=== PATIENT | male | born 1950 | race Caucasian/White ===

== ENCOUNTER 2023-06-28 14:44 | Emergency (ER) | payer MEDICARE, BC ==
[2023-06-28 16:27] LABS: HEMATOCRIT 38.1 % (38.4-49.7); HEMOGLOBIN 12.7 g/dL (12.9-16.9); MEAN CORPUSCULAR HEMOGLOBIN 29.8 pg (31.6-35.5); MEAN CORPUSCULAR HGB CONC 33.3 g/dL (31.6-35.5); MEAN CORPUSCULAR VOLUME 89.4 fL (81.4-99.0); PLATELET COUNT,PLT 123 K/uL (130-375); RED BLOOD CELL COUNT 4.26 M/uL (4.14-5.76); WHITE BLOOD CELL COUNT,WBC 2.7 K/uL (3.2-11.0)
[2023-06-28 16:52] LABS: BAND ABSOLUTE MAN 0.08 K/uL; BAND PERCENT MAN 3 % (5-11); EOSINOPHILS ABSOLUTE MAN 0.05 K/uL (0.00-0.40); EOSINOPHILS PERCENT MAN 2 % (2-4); LYMPHOCYTES ABSOLUTE MAN 0.51 K/uL (0.8-3.3); LYMPHOCYTES PERCENT MAN 19 % (24-44); MONOCYTES ABSOLUTE MAN 0.24 K/uL (0.20-0.90); MONOCYTES PERCENT MAN 9 % (2-6); NEUTROPHILS ABSOLUTE MAN 1.81 K/uL (1.0-7.6); SEG NEUTROPHILS PERCENT MAN 67 % (36-66)
== END 2023-06-28 17:07 | disposition home or self-care (01) ==
LOC: JP.ED 14:44
DX: C22.9 Malignant neoplasm of liver, not specified as primary or secondary (principal); R18.0 Malignant ascites; I48.91 Unspecified atrial fibrillation; I10 Essential (primary) hypertension; E11.9 Type 2 diabetes mellitus without complications; Z79.01 Long term (current) use of anticoagulants; Z79.899 Other long term (current) drug therapy; Z91.030 Bee allergy status
CPT/HCPCS: 36415; 85025; 99283; 99284

== ENCOUNTER 2023-06-30 10:12 | Emergency (ER) | payer MEDICARE, BC ==
[2023-06-30 12:06] LABS: PROTHROMBIN TIME > 170.9 sec (9.2-10.6)
[2023-06-30] MEDS ORDERED: Phytonadione 5 MG Tab PO ONE (12:14)
== END 2023-06-30 13:00 | disposition home or self-care (01) ==
LOC: JP.ED 10:12
DX: R79.1 Abnormal coagulation profile (principal); I48.91 Unspecified atrial fibrillation; I10 Essential (primary) hypertension; E11.9 Type 2 diabetes mellitus without complications; Z91.030 Bee allergy status; Z79.899 Other long term (current) drug therapy; Z79.01 Long term (current) use of anticoagulants
CPT/HCPCS: 36415; 85610; 99283; 99284; A9270

== ENCOUNTER 2023-07-21 15:37 | Emergency (ER) | payer MEDICARE, BC ==
[2023-07-21] MEDS ORDERED: Phytonadione 5 MG Tab PO ONE (16:21)
== END 2023-07-21 17:06 | disposition home or self-care (01) ==
LOC: JP.ED 15:37
DX: R79.1 Abnormal coagulation profile (principal); E11.9 Type 2 diabetes mellitus without complications; I10 Essential (primary) hypertension; I48.91 Unspecified atrial fibrillation; Z91.030 Bee allergy status; Z79.899 Other long term (current) drug therapy
CPT/HCPCS: 99283; A9270

== ENCOUNTER 2024-12-25 10:35 | Emergency (ER) | payer MEDICARE, BC ==
[2024-12-25 11:05] LABS: BASOPHILS ABSOLUTE AUTO 0.03 K/uL (0.00-0.10); BASOPHILS PERCENT AUTO 0.2 % (0.1-1.3); EOSINOPHILS ABSOLUTE AUTO 0.03 K/uL (0.00-0.40); EOSINOPHILS PERCENT AUTO 0.2 % (0.0-5.4); HEMATOCRIT 28.9 % (38.4-49.7); HEMOGLOBIN 9.8 g/dL (12.9-16.9); IMMATURE GRAN PERCENT AUTO 1.6 % (0.0-0.7); LYMPHOCYTES ABSOLUTE AUTO 1.04 K/uL (0.8-3.3); LYMPHOCYTES PERCENT AUTO 5.5 % (11.4-47.7); MEAN CORPUSCULAR HEMOGLOBIN 32.3 pg (31.6-35.5); MEAN CORPUSCULAR HGB CONC 33.9 g/dL (31.6-35.5); MEAN CORPUSCULAR VOLUME 95.4 fL (81.4-99.0); MONOCYTES ABSOLUTE AUTO 1.02 K/uL (0.20-0.90); MONOCYTES PERCENT AUTO 5.4 % (3.3-12.6); NEUTROPHILS ABSOLUTE AUTO 16.55 K/uL (1.0-7.6); NEUTROPHILS PERCENT AUTO 87.1 % (40.0-78.1); RED BLOOD CELL COUNT 3.03 M/uL (4.14-5.76)
[2024-12-25 11:07] LABS: PLATELET COUNT,PLT 27 K/uL (130-375)
[2024-12-25] MEDS: Sodium Chloride 0.9% 1,000 ML IV ONE ×2 (11:15→12:21)
[2024-12-25 11:25] LABS: A/G RATIO 0.4 (1.2-2.2); ALANINE AMINOTRANSFERASE,ALT 36 U/L (12-78); ALBUMIN 1.7 g/dL (3.4-5.0); ALKALINE PHOSPHATASE 224 U/L (46-116); ANION GAP 12.1 mmol/L (5.0-14.0); ASPARTATE AMNIOTRANSFERASE,AST 148 U/L (15-37); BLOOD UREA NITROGEN,BUN 74 mg/dL (7-18); CALCIUM 7.5 mg/dL (8.5-10.1); CARBON DIOXIDE,CO2 25 mmol/L (21-32); CHLORIDE,CL 103 mmol/L (100-108); CREATININE 3.2 mg/dL (0.8-1.3); EST CRCL DRUG DOSING (CG) 20.92 mL/min; ESTIMATED GFR 19 mL/min (>60); GLUCOSE RANDOM 54 mg/dL (74-106); POTASSIUM,K 3.8 mmol/L (3.6-5.2); PROTEIN TOTAL,TP 6.5 g/dL (6.4-8.2); SODIUM,NA 140 mmol/L (140-148)
[2024-12-25 11:27] LABS: INR 5.9
[2024-12-25] MEDS ORDERED: Factor IX Complex Human 500 UNIT VIAL IVPUSH ONE (11:59)
[2024-12-25 12:29] LABS: APPEARANCE,URINE SLIGHTLY CLOUDY (CLEAR); BILIRUBIN,URINE SMALL (NEGATIVE); COLOR,URINE BROWN (YELLOW); GLUCOSE,URINE NEGATIVE (NEGATIVE); KETONES,URINE NEGATIVE (NEGATIVE); LEUKOCYTE ESTERASE,URINE NEGATIVE (NEGATIVE); NITRITE,URINE NEGATIVE (NEGATIVE); OCCULT BLOOD,URINE MODERATE (NEGATIVE); PH,URINE 5.5 (5.0-8.0); PROTEIN,URINE 100 mg/dL (NEGATIVE); UROBILINOGEN,URINE 0.2 EU/dL (0.2-1.0)
[2024-12-25 12:30] LABS: AMORPHOUS SEDIMENT,URINE NOT SEEN; BACTERIA,URINE NOT SEEN; EPITHELIAL CELLS,URINE NOT SEEN; MUCUS,URINE NOT SEEN; RBC,URINE 0-5 (0-5); WBC,URINE 0-5 (0-5)
[2024-12-25] MEDS: Factor IX Complex Human 500 UNIT VIAL IVPUSH ONE (13:14)
== END 2024-12-25 14:04 ==
LOC: JP.ED 10:35
DX: S06.5X0A Traumatic subdural hemorrhage without loss of consciousness, initial encounter (principal); I48.91 Unspecified atrial fibrillation; D72.828 Other elevated white blood cell count; E72.20 Disorder of urea cycle metabolism, unspecified; C22.1 Intrahepatic bile duct carcinoma; R60.0 Localized edema; R06.9 Unspecified abnormalities of breathing; I10 Essential (primary) hypertension; E11.9 Type 2 diabetes mellitus without complications; Z91.030 Bee allergy status; Z79.01 Long term (current) use of anticoagulants; Z79.899 Other long term (current) drug therapy; W19.XXXA Unspecified fall, initial encounter
CPT/HCPCS: 36415; 70450; 71045; 71250; 74176; 80053; 81001; 82140; 83605; 83735; 83880; 85025; 85610; 93005; 96361; 96374; 99285; J7030; J7168

== ENCOUNTER 2025-03-22 19:28 | Emergency (ER) | payer MEDICARE, BC ==
[2025-03-22 19:38] LABS: BASOPHILS ABSOLUTE AUTO 0.01 K/uL (0.00-0.10); BASOPHILS PERCENT AUTO 0.1 % (0.1-1.3); EOSINOPHILS ABSOLUTE AUTO 0.01 K/uL (0.00-0.40); EOSINOPHILS PERCENT AUTO 0.1 % (0.0-5.4); HEMATOCRIT 37.3 % (38.4-49.7); HEMOGLOBIN 12.5 g/dL (12.9-16.9); IMMATURE GRAN PERCENT AUTO 0.3 % (0.0-0.7); LYMPHOCYTES ABSOLUTE AUTO 1.17 K/uL (0.8-3.3); LYMPHOCYTES PERCENT AUTO 15.1 % (11.4-47.7); MEAN CORPUSCULAR HEMOGLOBIN 32.6 pg (31.6-35.5); MEAN CORPUSCULAR HGB CONC 33.5 g/dL (31.6-35.5); MEAN CORPUSCULAR VOLUME 97.4 fL (81.4-99.0); MONOCYTES ABSOLUTE AUTO 0.56 K/uL (0.20-0.90); MONOCYTES PERCENT AUTO 7.2 % (3.3-12.6); NEUTROPHILS ABSOLUTE AUTO 5.97 K/uL (1.0-7.6); NEUTROPHILS PERCENT AUTO 77.2 % (40.0-78.1); PLATELET COUNT,PLT 99 K/uL (130-375); RED BLOOD CELL COUNT 3.83 M/uL (4.14-5.76); WHITE BLOOD CELL COUNT,WBC 7.7 K/uL (3.2-11.0)
[2025-03-22 19:39] LABS: IMMATURE GRAN ABSOLUTE AUTO 0.02 K/uL (0.00-0.23)
[2025-03-22 19:53] LABS: INR 1.3; PROTHROMBIN TIME 12.9 sec (9.2-10.6)
[2025-03-22 19:57] LABS: ALANINE AMINOTRANSFERASE,ALT 38 U/L (12-78); ALBUMIN 2.2 g/dL (3.4-5.0); ALKALINE PHOSPHATASE 223 U/L (46-116); ASPARTATE AMNIOTRANSFERASE,AST 54 U/L (15-37); BILIRUBIN TOTAL 1.5 mg/dL (0.2-1.0); BLOOD UREA NITROGEN,BUN 33 mg/dL (7-18); CALCIUM 8.9 mg/dL (8.5-10.1); CARBON DIOXIDE,CO2 36 mmol/L (21-32); CHLORIDE,CL 93 mmol/L (100-108); CREATININE 1.7 mg/dL (0.8-1.3); EST CRCL DRUG DOSING (CG) 33.92 mL/min; ESTIMATED GFR 41 mL/min (>60); GLUCOSE RANDOM 186 mg/dL (74-106); POTASSIUM,K 3.3 mmol/L (3.6-5.2); PROTEIN TOTAL,TP 8.5 g/dL (6.4-8.2); SODIUM,NA 137 mmol/L (140-148)
[2025-03-22 19:59] LABS: A/G RATIO 0.4 (1.2-2.2); ANION GAP 11.3 mmol/L (5.0-14.0)
[2025-03-22] MEDS: HYDROmorphone 0.5 MG/0.5 ML Syringe IVPUSH ONE (20:13)
[2025-03-22] MEDS: Sodium Chloride 0.9% 80 ML IV SCH (20:41)
[2025-03-22] MEDS: Iopamidol 612 MG/ML 100 ML Bottle IV SCH (20:41)
[2025-03-22] MEDS: Sodium Chloride 0.9% 1,000 ML IV SCH (20:45)
[2025-03-22 21:17] LABS: APPEARANCE,URINE CLEAR (CLEAR); BILIRUBIN,URINE NEGATIVE (NEGATIVE); COLOR,URINE YELLOW (YELLOW); GLUCOSE,URINE NEGATIVE (NEGATIVE); KETONES,URINE NEGATIVE (NEGATIVE); LEUKOCYTE ESTERASE,URINE NEGATIVE (NEGATIVE); NITRITE,URINE NEGATIVE (NEGATIVE); OCCULT BLOOD,URINE MODERATE (NEGATIVE); PH,URINE 6.5 (5.0-8.0); PROTEIN,URINE NEGATIVE (NEGATIVE); UROBILINOGEN,URINE 0.2 EU/dL (0.2-1.0)
[2025-03-22] MEDS: HYDROmorphone 1 MG/ML Syringe IVPUSH ONE (21:17)
[2025-03-22 21:22] LABS: BACTERIA,URINE FEW; EPITHELIAL CELLS,URINE NOT SEEN; RBC,URINE 20-30 (0-5); WBC,URINE 0-5 (0-5)
[2025-03-22 21:23] LABS: AMORPHOUS SEDIMENT,URINE NOT SEEN; MUCUS,URINE NOT SEEN
[2025-03-22] MEDS: Ketorolac 15 MG/ML SDV IVPUSH ONE (23:09)
[2025-03-22] MEDS: Ertapenem 1 GM in Sodium Chloride 0.9% 50 ML IV ONE (23:36)
== END 2025-03-22 23:41 | disposition other institution (70) ==
LOC: JP.ED 19:28
DX: K92.2 Gastrointestinal hemorrhage, unspecified (principal); S30.0XXA Contusion of lower back and pelvis, initial encounter; M46.28 Osteomyelitis of vertebra, sacral and sacrococcygeal region; I10 Essential (primary) hypertension; I48.91 Unspecified atrial fibrillation; Z91.030 Bee allergy status; Z79.899 Other long term (current) drug therapy; X58.XXXA Exposure to other specified factors, initial encounter
CPT/HCPCS: 36415; 74177; 80053; 81001; 85025; 85610; 86850; 86900; 86901; 86920; 86922; 87040; 96361; 96374; 96375; 99285; J1171; J1335; J1885; J7030; Q9967